=== PATIENT | male | born 1995 ===

== ENCOUNTER 2017-06-18 00:13 | Emergency (ER) | payer BC ==
[~2017-06-18] VITALS: Ht 175.3 cm; Wt 91.2 kg
[2017-06-18 00:18] VITALS: TEMP 36.7; Ht 175.3 cm; Wt 91.2 kg
--- NOTE | 2017-06-18 00:37 | EMERGENCY ROOM VISIT NOTE ---
History Report prepared by Scribe: Monica Lorenzo Under the Supervision of: Dr. Saad Bautista D.O. First contact with patient: 00:23 Chief Complaint: URINARY SYMPTOMS Stated Complaint: BLADDER HURTS Nursing Triage Summary: 2 months around his bladder area it hurts. burning and urgency and retention at times History of Present Illness The patient is a 21 year old male who presents to the Emergency Room with complaints of worsening bladder pain for the past 2 months. He rates his discomfort as a 6/10 in severity. He denies any back pain or abnormal penile discharge. He admits to dysuria and increased urinary urgency. He denies any history of STD's or prostate issues. He denies any personal history of kidney stones but admits to a family history of kidney stones and prostate cancer. Tonight while he was at the movies, the pain was "the worst its ever been", so he decided to come to the ED. The patient states he has been eating normally recently and denies any other complaints at today's visit. 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 A total of ten systems were reviewed and were otherwise negative. Family History Cancer Kidney stones Social History Smoking Status: Never Smoker Alcohol Use: occasionally Drug Use: none Marital Status: in relationship Housing Status: lives with roommate Occupation Status: [employer] student Current/Historical Medications No Active Prescriptions or Reported Meds Allergies Coded Allergies: No Known Allergies (Unverified , 06/18/17) Physical Exam Vital Signs Date Time Temp Pulse Resp B/P (MAP) Pulse Ox O2 Delivery O2 Flow Rate FiO2 06/18/17 00:18 36.7 61 18 144/76 97 Room Air Physical Exam GENERAL: Awake, alert, well-appearing, in no distress HENT: Normocephalic, atraumatic. Oropharynx unremarkable. EYES: Normal conjunctiva. Sclera non-icteric. NECK: Supple. No nuchal rigidity. FROM. No JVD. RESPIRATORY: Clear to auscultation. CARDIAC: Regular rate, normal rhythm. Extremities warm and well perfused. Pulses equal. ABDOMEN: Soft, non-distended. No tenderness to palpation. No rebound or guarding. No masses. RECTAL: Deferred. MUSCULOSKELETAL: Chest examination reveals no tenderness. The back is symmetrical on inspection without obvious abnormality. There is no CVA tenderness to palpation. No joint edema. LOWER EXTREMITIES: Calves are equal size bilaterally and non-tender. No edema. No discoloration. NEURO: Normal sensorium. No sensory or motor deficits noted. SKIN: No rash or jaundice noted. Medical Decision & Procedures ER Provider Diagnostic Interpretation: X ray results as stated below per my interpretation and radiologist interpretation. Other radiology results as stated below per my review and radiologist interpretation CT ABDOMEN & PELVIS Without Contrast: Comparison: None Impression: Moderate stool in colon may be constipation. No bowel obstruction or inflammatory changes. Small mesenteric lymph nodes. Normal appendix. No obstructive uropathy. Liver, gallbladder, pancreas, spleen unremarkable. Lung bases clear. Radiologist: Moisés Perry M.D. Laboratory Results Test 06/18/17 00:25 Urine Color DK YELLOW Urine Appearance CLEAR (CLEAR) Urine pH 6.0 (4.5-7.5) Urine Specific Reyno 1.027 (1.000-1.030) Urine Protein NEG (NEG) Urine Glucose (UA) NEG (NEG) Urine Ketones TRACE (NEG) Urine Occult Blood NEG (NEG) Urine Nitrite NEG (NEG) Urine Bilirubin NEG (NEG) Urine Urobilinogen NEG (NEG) Urine Leukocyte Esterase NEG (NEG) ED Course 0030: The patient was evaluated in room B8. A complete history and physical exam was performed. 0145: I reevaluated the patient. He is feeling well and resting comfortably. I discussed his results and discharge instructions and he verbalized complete understanding and agreement. Medical Decision The differential diagnoses considered include cystitis, UTI and urethral lithiasis. Patient resting in no distress on repeat examination. I discussed the urinalysis as well as a CAT scan with the patient patient will need follow-up I have recommended patient is MiraLAX [id number] and return for any concerns Medication Reconcilliation Current Medication List: was personally reviewed by me Blood Pressure Screening Patient's blood pressure: Elevated blood pressure Blood pressure disposition: Elevated BP felt to be situational Impression Primary Impression: Constipation Additional Impression: Bladder pain Scribe Attestation The scribe's documentation has been prepared under my direction and personally reviewed by me in its entirety. I confirm that the note above accurately reflects all work, treatment, procedures, and medical decision making performed by me. Departure Information Dispostion Home / Self-Care Prescriptions No Active Prescriptions or Reported Meds Referrals No Doctor, Assigned (PCP) Patient Instructions ED Constipation, My [facility] Additional Instructions Use [id number] MiraLAX, follow-up with her primary care physician, return for increased pain fever or any concerns Problem Qualifiers
[2017-06-18 00:44] LABS: URINE APPEARANCE CLEAR (CLEAR); URINE BILIRUBIN NEG (NEG); URINE COLOR DK YELLOW; URINE NITRITE NEG (NEG); URINE SPECIFIC GRAVITY 1.027 (1.000-1.030); UROBILINOGEN NEG (NEG)
[2017-06-18 00:56] LABS: MANUAL MICROSCOPIC REQUIRED? NO; REVIEW REQ? NO
[2017-06-18 01:52] VITALS: BP 114/82; PULSE 56; O2SAT 99
--- NOTE | 2017-06-18 07:24 | DIAGNOSTIC IMAGING REPORT ---
CT SCAN OF THE ABDOMEN AND PELVIS WITHOUT IV CONTRAST CLINICAL HISTORY: Right lower quadrant abdominal pain. COMPARISON STUDY: No priors. TECHNIQUE: CT scan of the abdomen and pelvis is performed from the lung bases to the proximal femora. Images are reviewed in the axial, sagittal, and coronal planes. IV contrast was not administered for this examination as per the referring clinician. Note that the examination was performed in suboptimal fashion without oral and IV contrast. A dose lowering technique was utilized adhering to the principles of ALARA. CT DOSE: 829.48 mGy.cm FINDINGS: Lung bases: The heart is normal in size and without pericardial effusion. The lung bases are clear. Liver: The unenhanced liver is normal in size, contour, and attenuation. There is no intrahepatic biliary ductal dilatation. Gallbladder: Unremarkable. Spleen: Normal in size and attenuation. Pancreas: Unremarkable. Adrenal glands: Unremarkable. Kidneys: The unenhanced kidneys are normal in size and without hydronephrosis. There are no renal calculi identified. There is no evidence of contour deforming renal mass lesion. Abdominal vasculature: The abdominal aorta is normal in course and caliber. Bowel: The small bowel and colon are normal in course and caliber. The appendix is well-visualized and normal. Peritoneum: There is no intraperitoneal free air or abdominal ascites. Lymphadenopathy: None. Pelvic viscera: The bladder, prostate, and seminal vesicles are normal as visualized. Skeletal structures: No lytic or blastic lesions are seen. IMPRESSION: There are no acute infectious or inflammatory findings in the abdomen or pelvis. Electronically signed by: Keny Queen M.D. 06/18/2017 7:23 AM Dictated Date/Time: 06/18/2017 7:19 AM
== END 2017-06-18 01:51 | disposition home or self-care (01) ==
LOC: C.EDB 00:15
DX: K59.00 Constipation, unspecified (principal); R39.89 Other symptoms and signs involving the genitourinary system; R30.0 Dysuria; R39.15 Urgency of urination; Z80.42 Family history of malignant neoplasm of prostate; Z84.1 Family history of disorders of kidney and ureter